=== PATIENT | female | born 1965 | race Caucasian/White ===

== ENCOUNTER 2021-10-12 12:44 | Emergency (ER) | payer OTHER ==
[~2021-10-12] VITALS: Ht 177.8 cm; Wt 77.2 kg
[2021-10-12 13:05] VITALS: BP 136/89
[2021-10-12 13:30] VITALS: BP 131/79
[2021-10-12 14:00] VITALS: BP 129/78
[2021-10-12 14:55] VITALS: BP 129/78
== END 2021-10-12 14:55 | disposition home or self-care (01) | DRG 605 ==
LOC: ED 12:44
PROC: 0HQFXZZ Repair Right Hand Skin, External Approach (ICD-10-PCS; principal; 2021-10-12)
DX: S61.411A Laceration without foreign body of right hand, initial encounter (principal); W13.3XXA Fall through floor, initial encounter; Y93.89 Activity, other specified; Y92.009 Unspecified place in unspecified non-institutional (private) residence as the place of occurrence of the external cause; Y99.0 Civilian activity done for income or pay

== ENCOUNTER 2022-05-16 23:53 | Emergency (ER) | payer OTHER ==
[~2022-05-16] VITALS: Ht 177.8 cm; Wt 79.5 kg
[2022-05-17 00:19] VITALS: BP 134/75
[2022-05-17 00:30] VITALS: BP 125/75
[2022-05-17 00:45] VITALS: BP 120/72
[2022-05-17] MEDS ORDERED: NAPROXEN500 MG PO (01:34)
[2022-05-17 01:44] VITALS: BP 120/72
== END 2022-05-17 01:55 | disposition home or self-care (01) | DRG 554 ==
LOC: ED 23:53
DX: M19.011 Primary osteoarthritis, right shoulder (principal)